=== PATIENT | female | born 2000 | race Caucasian/White ===

== ENCOUNTER 2021-06-26 11:08 | Emergency (ER) | payer MEDICAID ==
[~2021-06-26] VITALS: Ht 149.9 cm; Wt 77.0 kg
[~2021-06-26 11:08] MED LIST: AMOXICILLIN500 MG PO; AMOXICILLIN875 MG PO; ANTI-FUNGAL12 EX; ELIMITE5 % EX; ELIMITE60 GM EX; EQL CHILDRE5 MG/5 ML PO; HAEMINJ4 IM; MMR II SC; NASONEX50 MCG/AC NAB; PREVNAR 13 IM; TYLENOL & COD12.5 ML OR; ULESFIA5 % EX; ULTRAM50 M1 PO; UNK ALLERGY MED; VARIVAX SC
[2021-06-26 12:45] VITALS: BP 122/67
== END 2021-06-26 12:45 | disposition home or self-care (01) ==
LOC: ED 11:08
DX: O9A.212 Injury, poisoning and certain other consequences of external causes complicating pregnancy, second trimester (principal); T60.91XA Toxic effect of unspecified pesticide, accidental (unintentional), initial encounter; Z3A.00 Weeks of gestation of pregnancy not specified

== ENCOUNTER 2023-02-22 13:37 | Emergency (ER) | payer SELFPAY ==
[~2023-02-22] VITALS: Ht 149.9 cm; Wt 72.0 kg
[2023-02-22] MEDS ORDERED: NAPROXEN500 MG PO (14:49)
[2023-02-22 15:03] VITALS: BP 140/78
== END 2023-02-22 15:17 | disposition home or self-care (01) | DRG 159 ==
LOC: ED 13:37
DX: M26.621 Arthralgia of right temporomandibular joint (principal)